=== PATIENT | male | born 1955 | race Caucasian/White ===

== ENCOUNTER 2020-02-04 17:18 | Observation (INO) | payer OTHER ==
--- NOTE | 2020-02-04 18:14 | RAD REPORT ---
EXAM DESCRIPTION: Beto Single View02/04/2020 5:56 pm CLINICAL HISTORY: Shortness of breath COMPARISON: none FINDINGS: Moderate patchy left and mild to moderate patchy right pulmonary opacities The heart is normal size IMPRESSION: These findings may represent Covid pneumonia
[2020-02-04 18:39] LABS: Absolute Lymphocytes (CBC) 1.5 K/uL (0.7-4.9); Basophils % 0.4 % (0-1.3); Hematocrit 42.8 % (39.6-49.0); Lymphocytes % 16.8 % (15.3-44.8); MPV 7.7 fL (7.6-11.3); RBC Red Blood Cell Count 4.93 M/uL (4.33-5.43)
[2020-02-04 18:41] LABS: Protime INR 1.35
[2020-02-04 19:00] LABS: BUN Blood Urea Nitrogen 17 mg/dL (7-18); Bicarbonate 29 mmol/L (21-32); Glucose Level 94 mg/dL (74-106); Sodium Level 131 mmol/L (136-145)
[2020-02-04 19:01] LABS: ALT/SGPT 76 U/L (12-78); AST/SGOT 41 U/L (15-37); Albumin 2.9 g/dL (3.4-5.0); Alkaline Phosphatase 70 U/L (45-117); Bilirubin Direct 0.4 mg/dL (0-0.2); Bilirubin Total 1.1 mg/dL (0.2-1.0); Magnesium 2.4 mg/dL (1.8-2.4); NT PRO-BNP 23 pg/mL (<125); Protein, Total 8.3 g/dL (6.4-8.2); Troponin (Emerg Dept Use Only) < 0.02 ng/mL (0.0-0.045)
[2020-02-04] MEDS ORDERED: dexAMETHasone 4 MG/ML VIAL ONE (19:41)
--- NOTE | 2020-02-04 19:50 | RAD REPORT ---
EXAM DESCRIPTION: CT - Chest For Pe Angio - 02/04/2020 7:20 pm CLINICAL HISTORY: Shortness of breath COMPARISON: February 04, 2020 chest x-ray TECHNIQUE: Dynamically enhanced axial 3 mm thick images of the chest were obtained during administra tion of <100> mL Isovue 370 IV contrast. Coronal and oblique reconstruction images were generated and reviewed. Exam utilizes a protocol for optimal evaluation of pulmonary arterial tree. Maximum intensity projections 3D imaging was utilized All CT scans are performed using dose optimization technique as appropriate and may include automated exposure control or mA/KV adjustment according to patient size. FINDINGS: A pulmonary embolus is not seen. A thoracic aortic aneurysm is not noted. A pleural effusion is not seen. A pericardial effusion is not seen. Bilateral lower lobe consolidation. Mild alveolar opacities within the right upper and right middle l obes. IMPRESSION: Negative for a pulmonary embolism. Bilateral pneumonia
[2020-02-04] MEDS ORDERED: NA CHLORIDE 0.9% 1,000 ML ONE ×2 (21:05→23:23)
--- NOTE | 2020-02-04 22:47 | ER ---
Nurse's Notes [facility] Name: Db Foss Age: 64 yrs Sex: Male : 1955 Arrival Date: 02/04/2020 Time: 17:22 Bed 6 Private MD: Diagnosis: SARS-associated coronavirus as the cause of diseases classified elsewhere;Dehydration;Acute respiratory failure with hypoxia Presentation: 02/03 17:25 Chief complaint: Patient states: positive COVID-19, tested on Saturday. Pt reports not aa5 eating and diarrhea. Pt also reports cough. Reports O2 sat has been 87% to 90% at home. Pt denies SOB. 17:25 Coronavirus screen: Client denies travel out of the [place] in the last 14 days. Client aa5 presents with at least one sign or symptom that may indicate coronavirus-19. Standard/surgical mask placed on the client. Provider contacted for isolation considerations. Client reports previous positive COVID test result. Ebola Screen: Patient negative for fever greater than or equal to 101.5 degrees Fahrenheit, and additional compatible Ebola Virus Disease symptoms. Initial Sepsis Screen: Does the patient meet any 2 criteria? No. Patient's initial sepsis screen is negative. Does the patient have a suspected source of infection? No. Patient's initial sepsis screen is negative. Risk Assessment: Do you want to hurt yourself or someone else? Patient reports no desire to harm self or others. Onset of symptoms was January 2020. 17:25 Acuity: EMELIA 3 aa5 17:25 Method Of Arrival: Ambulatory aa5 Historical: - Allergies: 17:29 PENICILLINS; aa5 - Home Meds: 17:29 lisinopril 20 mg Oral tab 1 tab once daily [Active]; aa5 - PMHx: 17:29 Hypertension; aa5 - PSHx: 17:29 None; aa5 - Immunization history:: Flu vaccine is not up to date. - Social history:: Smoking status: Patient denies any tobacco usage or history of. Screenin:35 Abuse screen: Denies threats or abuse. Nutritional screening: decreased appetite . rb1 Tuberculosis screening: No symptoms or risk factors identified. Fall Risk None identified. Assessment: 17:35 General: Appears in no apparent distress. comfortable, Behavior is calm, cooperative, rb1 Reports chills for feeling ill for x 11 days. Pain: Denies pain. Neuro: Level of Consciousness is awake, alert, obeys commands, Oriented to person, place, time, situation. Cardiovascular: Patient's skin is warm and dry. Respiratory: Reports shortness of breath on exertion cough that is Airway is patent Respiratory effort is even, unlabored, Respiratory pattern is regular, symmetrical. GI: Reports diarrhea. : No signs and/or symptoms were reported regarding the genitourinary system. 18:24 Reassessment: Patient appears in no apparent distress at this time. No changes from rb1 previously documented assessment. 20:13 Reassessment: No changes from previously documented assessment. Patient and/or family ll2 updated on plan of care and expected duration. Pain level reassessed. Patient is alert, oriented x 3, equal unlabored respirations, skin warm/dry/pink. Vital Signs: 17:29 BP 143 / 87; Pulse 86; Resp 20 S; Temp 99.7(O); Pulse Ox 90% on R/A; Weight 86.18 kg aa5 (R); Height 5 ft. 11 in. (180.34 cm) (R); Pain 0/10; 18:24 BP 137 / 87; Pulse 84; Resp 17; Pulse Ox 94% on R/A; rb1 19:24 BP 144 / 85; Pulse 87; Resp 16; Pulse Ox 94% on R/A; ll2 20:42 BP 135 / 83; Pulse 92; Resp 19; Pulse Ox 92% ; rr5 22:00 BP 129 / 81; Pulse 82; Resp 15; Pulse Ox 91% on R/A; ll2 17:29 Body Mass Index 26.50 (86.18 kg, 180.34 cm) aa5 ED Course: 17:22 Patient arrived in ED. as 17:27 Arm band placed on. aa5 17:28 Triage completed. aa5 17:35 Patient has correct armband on for positive identification. Bed in low position. Call rb1 light in reach. Side rails up X 1. Pulse ox on. NIBP on. Given a sheet. 17:37 Leroy Jensen PA is PHCP. jr8 17:37 Mauro Wolff MD is Attending Physician. jr8 17:55 XRAY Chest (1 view) In Process Unspecified. EDMS 17:56 Dalia Barajas, RN is Primary Nurse. rb1 18:15 Inserted saline lock: 20 gauge in right antecubital area, using aseptic technique. rb1 Blood collected. 19:20 CT Chest For PE Angio In Process Unspecified. EDMS 22:46 Hi Knapp DO is Hospitalizing Provider. jr8 02/04 08:04 No provider procedures requiring assistance completed. Patient admitted, IV remains in em place. Administered Medications: 02/03 19:43 Drug: Decadron - Dexamethasone 10 mg Route: IVP; Site: right antecubital; ll2 19:44 Follow up: Response: No adverse reaction ll2 23:14 Drug: NS 0.9% 1000 ml Route: IV; Rate: 1 bolus; Site: right antecubital; ll2 Outcome: 22:46 Decision to Hospitalize by Provider. jr8 02/04 07:54 Patient left the ED. tw2 08:04 Admitted to ICU accompanied by nurse, via wheelchair, room 6, Report called to casey Phan 08:04 Condition: stable 08:04 Instructed on the need for admit, Demonstrated understanding of instructions. Signatures: Dispatcher [employer] EDOR Edmar García, RN RN em Alejandrina Watts Audri, RN RN aa5 Leroy Jensen PA PA jr8 Dalia Barajas, RN RN rb1 Cora Leahy RN RN tw2 Theo Vargas, RN RN rr5 Ayla James RN RN ll2
--- NOTE | 2020-02-04 22:47 | EDPHYS ---
Physician Documentation [facility] Name: Db Foss Age: 64 yrs Sex: Male : 1955 Arrival Date: 02/04/2020 Time: 17:22 Bed 6 Private MD: ED Physician Mauro Wolff HPI: 02/03 19:03 This 64 yrs old Male presents to ER via Ambulatory with complaints of jr8 Decreased Appetite - covid+. 19:03 Patient stated that he has been having symptoms of COVID for over a week. Stated that jr8 he was officially tested this past weekend and was positive. Came to ED today because he continues to having decreased appetite and decreased fluid intake secondary to persistent nausea. Also noticing that he has had slight more increase in [place] and that his home oxygen saturation has been reading 88-89% RA at home. Severity of symptoms: At their worst the symptoms were moderate in the emergency department the symptoms are unchanged. The patient has not experienced similar symptoms in the past. The patient has not recently seen a physician. Historical: - Allergies: 17:29 PENICILLINS; aa5 - Home Meds: 17:29 lisinopril 20 mg Oral tab 1 tab once daily [Active]; aa5 - PMHx: 17:29 Hypertension; aa5 - PSHx: 17:29 None; aa5 - Immunization history:: Flu vaccine is not up to date. - Social history:: Smoking status: Patient denies any tobacco usage or history of. ROS: 19:03 Eyes: Negative for injury, pain, redness, and discharge, ENT: Negative for injury, jr8 pain, and discharge, Neck: Negative for injury, pain, and swelling, Cardiovascular: Negative for chest pain, palpitations, and edema, Back: Negative for injury and pain, MS/Extremity: Negative for injury and deformity, Skin: Negative for injury, rash, and discoloration, Neuro: Negative for headache, weakness, numbness, tingling, and seizure. 19:03 Respiratory: Positive for cough, dyspnea on exertion, shortness of breath, Negative for sputum production, wheezing. 19:03 Abdomen/GI: Positive for nausea, diarrhea, Negative for abdominal pain, vomiting, constipation, abdominal cramps, abdominal distension. Exam: 19:03 Eyes: Pupils equal round and reactive to light, extra-ocular motions intact. Lids and jr8 lashes normal. Conjunctiva and sclera are non-icteric and not injected. Cornea within normal limits. Periorbital areas with no swelling, redness, or edema. ENT: Nares patent. No nasal discharge, no septal abnormalities noted. Tympanic membranes are normal and external auditory canals are clear. Oropharynx with no redness, swelling, or masses, exudates, or evidence of obstruction, uvula midline. Mucous membranes moist. Neck: Trachea midline, no thyromegaly or masses palpated, and no cervical lymphadenopathy. Supple, full range of motion without nuchal rigidity, or vertebral point tenderness. No Meningismus. Cardiovascular: Regular rate and rhythm with a normal S1 and S2. No gallops, murmurs, or rubs. Normal PMI, no JVD. No pulse deficits. Respiratory: Lungs have equal breath sounds bilaterally, clear to auscultation and percussion. No rales, rhonchi or wheezes noted. No increased work of breathing, no retractions or nasal flaring. Abdomen/GI: Soft, non-tender, with normal bowel sounds. No distension or tympany. No guarding or rebound. No evidence of tenderness throughout. Back: No spinal tenderness. No costovertebral tenderness. Full range of motion. Skin: Warm, dry with normal turgor. Normal color with no rashes, no lesions, and no evidence of cellulitis. MS/ Extremity: Pulses equal, no cyanosis. Neurovascular intact. Full, normal range of motion. Neuro: Awake and alert, GCS 15, oriented to person, place, time, and situation. Cranial nerves II-XII grossly intact. Motor strength 5/5 in all extremities. Sensory grossly intact. Vital Signs: 17:29 BP 143 / 87; Pulse 86; Resp 20 S; Temp 99.7(O); Pulse Ox 90% on R/A; Weight 86.18 kg aa5 (R); Height 5 ft. 11 in. (180.34 cm) (R); Pain 0/10; 18:24 BP 137 / 87; Pulse 84; Resp 17; Pulse Ox 94% on R/A; rb1 19:24 BP 144 / 85; Pulse 87; Resp 16; Pulse Ox 94% on R/A; ll2 20:42 BP 135 / 83; Pulse 92; Resp 19; Pulse Ox 92% ; rr5 22:00 BP 129 / 81; Pulse 82; Resp 15; Pulse Ox 91% on R/A; ll2 17:29 Body Mass Index 26.50 (86.18 kg, 180.34 cm) aa5 MDM: 17:37 Patient medically screened. jr8 20:51 Data reviewed: vital signs, nurses notes, lab test result(s), EKG, radiologic studies, jr8 CT scan, plain films. Data interpreted: Pulse oximetry: on room air is 92 %. Interpretation: borderline. Counseling: I had a detailed discussion with the patient and/or guardian regarding: the historical points, exam findings, and any diagnostic results supporting the discharge/admit diagnosis, lab results, radiology results. 02/03 17:37 Order name: Basic Metabolic Panel; Complete Time: 19:02 02/03 17:37 Order name: CBC with Diff; Complete Time: 19:02 02/03 17:37 Order name: LFT's; Complete Time: 19:02 02/03 17:37 Order name: Magnesium; Complete Time: 19:02 02/03 17:37 Order name: NT PRO-BNP; Complete Time: 19:02 02/03 17:37 Order name: PT-INR; Complete Time: 19:02 02/03 17:37 Order name: Troponin (emerg Dept Use Only); Complete Time: 19:02 02/03 17:37 Order name: XRAY Chest (1 view); Complete Time: 18:34 02/03 17:37 Order name: CRP; Complete Time: 19:02 02/03 17:37 Order name: DD; Complete Time: 19:02 02/03 19:03 Order name: CT Chest For PE Angio; Complete Time: 20:45 02/04 02:23 Order name: C-Reactive Protein; Complete Time: 14:04 EDMS 02/04 07:10 Order name: Comprehensive Metabolic Panel; Complete Time: 14:04 EDMS 02/04 07:10 Order name: Magnesium; Complete Time: 14:04 EDMS 02/03 17:37 Order name: EKG; Complete Time: 17:38 8 02/03 17:37 Order name: Cardiac monitoring; Complete Time: 19:36 8 02/03 17:37 Order name: EKG - Nurse/Tech; Complete Time: 19:36 8 02/03 17:37 Order name: IV Saline Lock; Complete Time: 18:20 8 02/03 17:37 Order name: Labs collected and sent; Complete Time: 18:20 8 02/03 17:37 Order name: O2 Per Protocol; Complete Time: 18:20 02/03 17:37 Order name: O2 Sat Monitoring; Complete Time: 18:20 Administered Medications: 19:43 Drug: Decadron - Dexamethasone 10 mg Route: IVP; Site: right antecubital; 2 19:44 Follow up: Response: No adverse reaction ll2 23:14 Drug: NS 0.9% 1000 ml Route: IV; Rate: 1 bolus; Site: right antecubital; ll2 Disposition: 02/04/20 22:46 Hospitalization ordered by Hi Knapp for Inpatient Admission. Preliminary diagnosis are SARS-associated coronavirus as the cause of diseases classified elsewhere, Dehydration, Acute respiratory failure with hypoxia. - Bed requested for Intensive Care Unit. - Status is Inpatient Admission. tw2 - Condition is Stable. - Problem is new. - Symptoms are unchanged. Addendum: 02/09/2020 07:02 Co-signature as Attending Physician, Mauro Wolff MD. r n Signatures: Dispatcher [employer] EDMS Blanka Sanford RN RN Mauro Wolff MD MD rn Calderon, Audri, RN RN aa5 Leroy Jensen PA PA jr8 Cora Leahy RN RN tw2 Ayla James RN RN 2 Corrections: (The following items were deleted from the chart) 02/03 23:28 22:46 Hospitalization Ordered by Hi Knapp DO for Inpatient Admission. Preliminary mw diagnosis is SARS-associated coronavirus as the cause of diseases classified elsewhere; Dehydration; Acute respiratory failure with hypoxia. Bed requested for Telemetry/MedSurg (Inpatient). Status is Inpatient Admission. Condition is Stable. Problem is new. Symptoms are unchanged. [facility] 02/04 05:35 02/03 23:28 02/04/2020 22:46 Hospitalization Ordered by Hi Knapp DO for Inpatient Admission. Preliminary diagnosis is SARS-associated coronavirus as the cause of diseases classified elsewhere; Dehydration; Acute respiratory failure with hypoxia. Bed requested for [facility] ER HOLD. Status is Inpatient Admission. Condition is Stable. Problem is new. Symptoms are unchanged. 02/04 07:54 05:35 02/04/2020 22:46 Hospitalization Ordered by Hi Knapp DO for Inpatient tw2 Admission. Preliminary diagnosis is SARS-associated coronavirus as the cause of diseases classified elsewhere; Dehydration; Acute respiratory failure with hypoxia. Bed requested for Intensive Care Unit. Status is Inpatient Admission. Condition is Stable. Problem is new. Symptoms are unchanged.
--- NOTE | 2020-02-04 23:26 | P.HP ---
Certification for Inpatient Patient admitted to: Observation With expected LOS: <2 Midnights Patient will require the following post-hospital care: Other (Home oxygen) Practitioner: I am a practitioner with admitting privileges, knowledge of patient current condition, hospital course, and medical plan of care. Services: Services provided to patient in accordance with Admission requirements found in Title 42 Section 412.3 of the Code of Federal Regulations Patient History Date of Service: 02/04/20 Primary Care Provider: Dr. Murillo Reason for admission: Shortness of breath, positive for COVID History of Present Illness: 64-year-old male with history of hypertension presented to the emergency room with increasing shortness of breath. Patient reports increasing cough, congestion and shortness of breath over the last 3 days. He reports symptoms started about 11 days ago. He was seen at [facility] facility for COVID testing due to symptoms. The patient reported that he was tested positive on Saturday. Since that time he has been having increasing shortness of breath. Poor appetite noted. He feels weak and sick. Increasing cough noted. had similar symptoms but very mild probably a couple a days before his initial symptoms. Since his symptoms have not improved. He came to the ER for further evaluation. In the ER patient was evaluated. Patient had hypoxia with room-air saturations around 88%. Patient was evaluated the emergency room. Elevated D-dimer noted at 912. CRP also elevated at 255. CBC unremarkable. Sodium 131, potassium 4.0. BUN of 17, creatinine 1.13 with a GFR 66. Total bilirubin 1.1, direct bilirubin 0.4, and ALT 41. CT chest showed no pulmonary embolism. Bilateral pneumonia noted. Due to his hypoxia the patient was admitted for further evaluation and treatment. When I saw the patient ER, he appeared stable on oxygen. at bedside. Patient had been practicing social distancing and mask use. Patient on sure how he got COVID infection. Home medications list reviewed: Yes - Past Medical/Surgical History Diabetic: No -: Hypertension Past Surgical History: Patient denies surgical history Psychosocial/ Personal History: Patient is . 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 - Family History Family History: Reviewed- Non-Contributory - Social History Smoking Status: Never smoker Alcohol use: Yes CD- Drugs: No Caffeine use: Yes Place of Residence: Home Review of Systems General: Fever, Chills, Weakness, Malaise, As per HPI Eyes: Unremarkable ENT: Nose Congestion, As per HPI Respiratory: Cough, Shortness of Breath, SOB with Excertion, As per HPI Cardiovascular: Unremarkable Gastrointestinal: Unremarkable Genitourinary: Unremarkable Musculoskeletal: Unremarkable Integumentary: Unremarkable Neurological: As per HPI Lymphatics: Unremarkable Physical Examination - Physical Exam General: Alert, In no apparent distress, Oriented x3, Cooperative HEENT: Atraumatic, Normocephalic, Mucous membr. moist/pink Neck: Supple Respiratory: Diminished (Decreased bilateral), Crackles/rales (Bilateral) Cardiovascular: Normal pulses, Regular rate/rhythm Gastrointestinal: Normal bowel sounds, Soft and benign, Non-distended, No tenderness, No masses, No rebound, No guarding Musculoskeletal: No erythema, No tenderness, No warmth Integumentary: No tenderness/swelling, No erythema, No warmth, No cyanosis Neurological: Normal speech, Normal strength at 5/5 x4 extr, Normal tone, Normal affect - Studies Laboratory Data (last 24 hrs) 02/04/20 18:15: PT 15.8 H, INR 1.35 02/04/20 18:15: WBC 8.7, Hgb 14.7, Hct 42.8, Plt Count 296 02/04/20 18:15: Sodium 131 L, Potassium 4.0, BUN 17, Creatinine 1.13, Glucose 94, Magnesium 2.4, Total Bilirubin 1.1 H, AST 41 H, ALT 76, Alkaline Phosphatase 70 Assessment and Plan - Plan Impression: Dyspnea secondary to bilateral COVID 19 pneumonia with hypoxia Hypertension Plan: Dyspnea secondary to bilateral COVID 19 pneumonia with hypoxia: Patient will be admitted for further evaluation and treatment. Patient will be placed in the COVID 19 unit. Will continue with high-dose IV steroids. Will provide DVT prophylaxis-Lovenox. Will provide supplementation including thiamine, vitamin- D, vitamin-C and melatonin. Patient agreeable with plan of care. Will consult pulmonology for further recommendation. Will continue to monitor CRP and CMP. CT scan revealed no pulmonary embolism. Patient will need to be re-evaluated tomorrow. Anticipate improvement over the next 24-48 hr. Will have respiratory check room-air saturations as the patient will likely require home oxygen at discharge. If CRP and condition significantly improved can be possibly discharge as early as tomorrow with oxygen or the patient may have to stay another day for continued treatment. Education on COVID 19 including current treatment and plan of care address in detail with the patient and . Both agreeable with plan of care. Await recommendations by pulmonology. Respiratory consulted to help in maintaining adequate oxygenation. I will turn the service over to the hospitalist team tomorrow. I will go over the plan of care with him. Hypertension: Continue with lisinopril. Discharge Plan: Home Plan to discharge in: 48 Hours - Advance Directives Does patient have a Living Will: No Does patient have a Durable POA for Healthcare: No - Code Status/Comfort Care Code Status Assessed: Yes (Patient full code) Time Spent Managing Pts Care (In Minutes): 55
[2020-02-05] MEDS ORDERED: MELATONIN 3 MG TABLET PO PRN (00:36)
[2020-02-05] MEDS ORDERED: ONDANSETRON 4 MG/2 ML VIAL IV PRN (00:36)
[2020-02-05] MEDS ORDERED: METHYLPREDNISOLONE 125 MG INJ IV SCH ×2 (00:36→09:00)
[2020-02-05] MEDS ORDERED: ACETAMINOPHEN 500 MG TAB PO PRN (00:36)
[2020-02-05] MEDS ORDERED: METHYLPREDNISOLONE 40 MG INJ ONE ×2 (01:09→06:18)
[2020-02-05 02:20] VITALS: BMI 26.4
[2020-02-05 07:03] LABS: ALT/SGPT 53 U/L (12-78); AST/SGOT 28 U/L (15-37); Albumin 2.5 g/dL (3.4-5.0); Alkaline Phosphatase 51 U/L (45-117); BUN Blood Urea Nitrogen 15 mg/dL (7-18); Bicarbonate 22 mmol/L (21-32); Bilirubin Total 0.5 mg/dL (0.2-1.0); Glucose Level 125 mg/dL (74-106); Magnesium 2.1 mg/dL (1.8-2.4); Potassium 3.5 mmol/L (3.5-5.1); Sodium Level 140 mmol/L (136-145)
[2020-02-05] MEDS ORDERED: INFLUENZA VACCINE (for 3y+) 0.5 ML DOSE IMVAC ONE (08:00)
[2020-02-05] MEDS ORDERED: lisinopriL 10 MG TAB PO SCH (09:00)
[2020-02-05] MEDS ORDERED: THIAMINE HCL 100 MG TABLET PO SCH (09:00)
[2020-02-05] MEDS ORDERED: ZINC SULFATE 220 MG CAP PO SCH (09:00)
[2020-02-05] MEDS ORDERED: VITAMIN D 1000 UNIT TAB PO SCH (09:00)
[2020-02-05] MEDS ORDERED: ENOXAPARIN 40 MG/0.4 ML SQ SCH (09:00)
[2020-02-05] MEDS ORDERED: ASCORBIC ACID 500 MG TABLET PO SCH (09:00)
[2020-02-05] MEDS ORDERED: POTASSIUM CL SA 10 MEQ TAB PO ONE (09:52)
--- NOTE | 2020-02-05 10:18 | P.CNS ---
Date of Consult: 02/05/20 Primary Care Provider: Dr. Murillo Chief Complaint: Acute lung injury from snyder virus infection History of Present Illness: Patient is 64 years of age was recently tested positive for snyder virus admitted to the hospital complaining of worsening shortness of breath for the past 3 days he was tested positive 11 days ago at [facility] is feels weak sec increasing cough he currently is stable feeling better is on oxygen Allergies Penicillins Allergy (Verified 02/05/20 00:54) Anaphylaxis - Past Medical/Surgical History Diabetic: No -: Hypertension Psychosocial/ Personal History: Patient is . 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 - Family History Sister Medical History: Cancer Notes: pt reports all 3 sisters had breast cancer Mother Medical History: Hypertension - Social History Alcohol use: Yes CD- Drugs: No Caffeine use: Yes Place of Residence: Home Review of Systems 10-point ROS is otherwise unremarkable Physical Examination Temp Pulse Resp BP Pulse Ox 97.7 F 92 H 20 136/84 91 02/05/20 08:15 02/05/20 09:30 02/05/20 09:30 02/05/20 09:30 02/05/20 09:30 General: Alert, Oriented x3 Respiratory: Clear to auscultation bilaterally, Friction rub Cardiovascular: Normal S1 S2 Laboratory Data (last 24 hrs) 02/04/20 18:15: PT 15.8 H, INR 1.35 02/04/20 18:15: WBC 8.7, Hgb 14.7, Hct 42.8, Plt Count 296 02/04/20 18:15: Sodium 131 L, Potassium 4.0, BUN 17, Creatinine 1.13, Glucose 94, Magnesium 2.4, Total Bilirubin 1.1 H, AST 41 H, ALT 76, Alkaline Phosphatase 70 - Problems (1) Acute respiratory distress syndrome (ARDS) due to 2019 novel coronavirus Current Visit: Yes Status: Acute Plan: Patient is 64 years of age admitted with ARDS from snyder virus infection he is currently doing much better still requiring low concentrations of oxygen patient C reactive protein is elevated patient can be discharged home on prednisone 20 mg twice a day for a week then 10 twice a day for another week he will need home oxygen 4 L a min patient to monitor his pulse ox at home advise him to keep it above 90% and low-dose anticoagulation 4 months hypercalcemia is probably secondary to hypoalbuminemia CRP elevated CT scanner we reviewed he has some bibasilar changes no pulmonary embolism
[2020-02-05 11:22] LABS: Urine Appearance CLEAR; Urine Bilirubin NEGATIVE (NEG); Urine Blood NEGATIVE (NEG); Urine Color YELLOW; Urine Glucose NEGATIVE (NEG); Urine Protein 2+ (NEG); Urine Specific Gravity >=1.030 (1.005-1.030); Urine Urobilinogen 0.2 mg/dL (0.2-1.0); Urine pH 5.5 (5.0-7.0)
[2020-02-05 11:31] LABS: Urine Microscopic Reflex ORDER UMIC
[2020-02-05 12:00] LABS: Urine Bacteria <20 /HPF (NONE SEEN); Urine Culture Reflex Order NOT NEEDED; Urine RBC <5 /HPF (NONE SEEN)
[2020-02-05] MEDS ORDERED: CALCIUM GLUC 10% INJ 4.65 MEQ in NA CHLORIDE 0.9% 100 ML IV ONE (13:00)
--- NOTE | 2020-02-05 14:33 | P.DS ---
Admission Date: 02/04/20 Discharge Date: 02/05/20 Primary Care Provider: Dr. Murillo Disposition: DC HOME/HOME HEALTH CARE Discharge Condition: GOOD Reason for Admission: Acute lung injury from snyder virus infection Brief History of Present Illness: Please refer to H&P Hospital Course: This is a 64-year-old male with a recent diagnosis of cough at 11 days prior to presentation who returned to the hospital complaining of persistent hypoxic events. His chest x-ray was classic findings COVID 19 pneumonia. He did well on systemic corticosteroids, and adjunctive therapy with multi- vitamins. He is currently on 2 L. Given his mild disease, no remdesivir or convalescent plasma was given. He will need a 14-day day of steroid and anticoagulation. Vital Signs/Physical Exam: Temp Pulse Resp BP Pulse Ox 97.7 F 80 20 140/82 92 02/05/20 08:15 02/05/20 12:00 02/05/20 12:00 02/05/20 12:00 02/05/20 12:00 General: Cooperative, Mild distress HEENT: Atraumatic, Normocephalic, EOMI Neck: Supple Respiratory: Diminished, Crackles/rales Cardiovascular: No edema, Normal pulses, Regular rate/rhythm, Normal S1 S2 Gastrointestinal: Normal bowel sounds, Soft and benign, Non-distended, No tenderness Musculoskeletal: No clubbing, No swelling, No contractures, No erythema, No tenderness, No warmth Integumentary: No rashes, No breakdown, No significant lesion, No tenderness/swelling, No erythema, No warmth, No cyanosis Neurological: Normal speech, Normal tone, Normal affect Laboratory Data at Discharge: WBC 8.7 K/uL (4.3-10.9) 02/04/20 18:15 Hgb 14.7 g/dL (13.6-17.9) 02/04/20 18:15 Hct 42.8 % (39.6-49.0) 02/04/20 18:15 Plt Count 296 K/uL (152-406) 02/04/20 18:15 PT 15.8 SECONDS (9.5-12.5) H 02/04/20 18:15 INR 1.35 02/04/20 18:15 Sodium 140 mmol/L (136-145) 02/05/20 06:11 Potassium 3.5 mmol/L (3.5-5.1) 02/05/20 06:11 BUN 15 mg/dL (7-18) 02/05/20 06:11 Creatinine 0.81 mg/dL (0.55-1.3) 02/05/20 06:11 Glucose 125 mg/dL (74-106) H 02/05/20 06:11 Magnesium 2.1 mg/dL (1.8-2.4) 02/05/20 06:11 Total Bilirubin 0.5 mg/dL (0.2-1.0) 02/05/20 06:11 AST 28 U/L (15-37) 02/05/20 06:11 ALT 53 U/L (12-78) 02/05/20 06:11 Alkaline Phosphatase 51 U/L (45-117) 02/05/20 06:11 Home Medications: RX: Ascorbic Acid [Vitamin C*] 500 mg PO DAILY #14 tablet 02/05/20 RX: Cholecalciferol (Vitamin D3) [Vitamin D 1000 Iu Tab*] 1,000 unit PO DAILY #14 tab 02/05/20 RX: Enoxaparin Sodium [Lovenox 40 MG INJ*] 40 mg SQ DAILY #8 rock 02/05/20 RX: Melatonin [Melatonin*] 3 mg PO BEDTIME PRN PRN #14 tablet 02/05/20 RX: Thiamine HCl [Vitamin B-1*] 100 mg PO DAILY #14 tablet 02/05/20 RX: Zinc Sulfate [Zinc Sulfate*] 220 mg PO DAILY #14 cap 02/05/20 RX: lisinopriL [Prinivil*] 10 mg PO BID tab 02/05/20 predniSONE [Deltasone] 20 mg PO BID #28 tab 02/05/20 New Medications: RX: Enoxaparin Sodium [Lovenox 40 MG INJ*] 40 mg SQ DAILY #8 rock RX: Melatonin [Melatonin*] 3 mg PO BEDTIME PRN PRN #14 tablet PRN Reason: Insomnia predniSONE [Deltasone] 20 mg PO BID #28 tab RX: Thiamine HCl [Vitamin B-1*] 100 mg PO DAILY #14 tablet RX: Ascorbic Acid [Vitamin C*] 500 mg PO DAILY #14 tablet RX: Cholecalciferol (Vitamin D3) [Vitamin D 1000 Iu Tab*] 1,000 unit PO DAILY #14 tab RX: Zinc Sulfate [Zinc Sulfate*] 220 mg PO DAILY #14 cap Diet: Regular
[2020-02-05 17:08] VITALS: BP 137/92; TEMP 98.3
[2020-02-05 18:24] VITALS: O2SAT 93
--- NOTE | 2020-02-07 11:17 | EKG ---
Test Date: 2020-02-04 Test Time: 19:31:29 Card Doffer: KAUSHAL MEASUREMENT RESULTS: Intervals: Rate: 90 IA: 140 QRSD: 86 QT: 350 QTc: 428 [place]: P: 35 IA: 140 QRS: 56 T: 36 INTERPRETIVE STATEMENTS: Normal sinus rhythm Normal ECG No previous ECG available for comparison Electronically Signed On 02-07-20 11:14:40 CDT by Philip Payne
== END 2020-02-05 16:42 | disposition home or self-care (01) ==
LOC: ER 17:18 → ERHOLD 23:12 → 3RD-ICU 02-05 07:34
PROVIDERS: ADMIT Family Medicine; ATTEND Internal Medicine
DX: U07.1 COVID-19 (principal); J12.89 Other viral pneumonia; I10 Essential (primary) hypertension; J80 Acute respiratory distress syndrome; R09.02 Hypoxemia
CPT/HCPCS: 93005; 87040 ×2; 85025; 80048; 36415; 83735 ×2; 85610; 85379; 80076; 84484; 80053; 83880; 86140 ×2; 71275; 71045; 94010 ×2; 96374; 99285; Q9967; J1100; J0610; J1650; J7030 ×2; J2930; J2920 ×2; G0378 ×2; 81003; 81015